=== PATIENT | female | born 1960 | race Caucasian/White ===

== ENCOUNTER 2022-05-06 14:39 | Inpatient (IN) | payer OTHER ==
[~2022-05-06] VITALS: Ht 167.6 cm; Wt 84.4 kg
[2022-05-06 14:40] VITALS: BP_SYST 155
[2022-05-06] MEDS ORDERED: DULO60CA42 PO (14:53)
[2022-05-06] MEDS ORDERED: APIX2.5T PO (14:53)
[2022-05-06] MEDS ORDERED: AMLO5TAB4 PO (14:53)
[2022-05-06] MEDS ORDERED: PRO40 IVP (14:53)
[2022-05-06 15:42] LABS: BASOPHILS # (AUTO) 0.1 K/uL (0.0-0.2); BASOPHILS % (AUTO) 0.7 % (0.0-2.0); EOSINOPHILS # (AUTO) 0.1 K/uL (0.0-0.4); EOSINOPHILS % (AUTO) 1.6 % (0.0-4.0); HEMOGLOBIN 9.8 g/dL (12.0-16.0); LYMPHOCYTES # (AUTO) 0.9 K/uL (1.0-5.5); MEAN CORPUSCULAR HEMOGLOBIN 31 pg (27-31); MEAN CORPUSCULAR HGB CONC 34 % (32-36); MEAN CORPUSCULAR VOLUME 90 fL (79.0-98.0); MONOCYTES # (AUTO) 0.9 K/uL (0.0-1.0); MONOCYTES % (AUTO) 10.2 % (1.7-9.3); NEUTROPHILS # (AUTO) 7.2 K/uL (1.8-7.7); NEUTROPHILS % (AUTO) 77.5 % (40.0-70.0); PLATELET COUNT (AUTO) 240 K/uL (130-430); RED BLOOD CELL COUNT(AUTO) 3.21 MIL/uL (4.2-6.2); RED CELL DISTRIBUTION WIDTH 16.2 % (9.0-15.0); WHITE BLOOD COUNT (AUTO) 9.3 K/uL (4.8-10.8)
[2022-05-06 15:54] LABS: ANION GAP 9 (5-15); CALCIUM 7.7 mg/dL (8.4-11.0); CHLORIDE 103 mmol/L (98-107); CREATININE 1.38 mg/dL (0.55-1.30); GFR AFRICAN AMERICAN 50 mL/min (>90); GLUCOSE 115 mg/dL (70-99); UREA NITROGEN, BLOOD 16 mg/dL (8-21)
[2022-05-06] MEDS ORDERED: NACL 0.9% 1,000 ML IV ONE ×2 (16:00)
[2022-05-06 16:01] LABS: ALANINE AMINOTRANSFERASE 17 U/L (12-78); ALBUMIN 2.3 g/dL (3.4-4.8); ASPARTATE AMINOTRANSFERASE 42 U/L (10-37); TOTAL BILIRUBIN 0.4 mg/dL (0.0-1.0)
[2022-05-06] MEDS ORDERED: MORPHINE 2 MG/ML INJ. SYRINGE IVP PRN (16:30)
[2022-05-06] MEDS ORDERED: ONDA4VIA52 IV (16:41)
[2022-05-06] MEDS ORDERED: D5NS 1,000 ML IV ONE (16:45)
[2022-05-06] MEDS ORDERED: MORPHINE 4 MG INJ. 4 MG/ML VIAL IVP ONE (20:00)
[2022-05-06] MEDS: ONDANSETRON HCL 4 MG/2 ML VIAL IVP SCH (21:10)
[2022-05-06] MEDS: PANTOPRAZOLE SODIUM 40 MG/VIAL (PROTONIX) IVP SCH (21:19)
[2022-05-06 21:30] VITALS: BP_SYST 141
[2022-05-07] MEDS ORDERED: *TPN PER PHARMACY XX PRN (00:30)
[2022-05-07 00:32] VITALS: BP_SYST 149
[2022-05-07] MEDS ORDERED: PIPERACILLIN/TAZOBACTAM 3.375 GM/VIAL (ZOSYN) IV ONE (01:24)
[2022-05-07] MEDS: PIPERACILLIN/TAZO 3.375/DEX-IS 50 ML IV SCH ×4 (01:48→22:02)
[2022-05-07] MEDS: ONDANSETRON HCL 4 MG/2 ML VIAL IVP SCH ×3 (06:54→22:01)
[2022-05-07 07:32] LABS: BASOPHILS % (AUTO) 0.5 % (0.0-2.0); EOSINOPHILS # (AUTO) 0.1 K/uL (0.0-0.4); EOSINOPHILS % (AUTO) 2.2 % (0.0-4.0); HEMATOCRIT 26.9 % (36-48); HEMOGLOBIN 9.2 g/dL (12.0-16.0); LYMPHOCYTES # (AUTO) 0.6 K/uL (1.0-5.5); LYMPHOCYTES % (AUTO) 9.3 % (20.5-51.5); MEAN CORPUSCULAR HEMOGLOBIN 31 pg (27-31); MEAN CORPUSCULAR HGB CONC 34 % (32-36); MEAN CORPUSCULAR VOLUME 91 fL (79.0-98.0); MONOCYTES # (AUTO) 0.6 K/uL (0.0-1.0); MONOCYTES % (AUTO) 8.7 % (1.7-9.3); NEUTROPHILS # (AUTO) 5.5 K/uL (1.8-7.7); NEUTROPHILS % (AUTO) 79.3 % (40.0-70.0); PLATELET COUNT (AUTO) 211 K/uL (130-430); RED BLOOD CELL COUNT(AUTO) 2.97 MIL/uL (4.2-6.2); RED CELL DISTRIBUTION WIDTH 15.8 % (9.0-15.0); WHITE BLOOD COUNT (AUTO) 6.9 K/uL (4.8-10.8)
[2022-05-07 07:49] LABS: CALCIUM 7.1 mg/dL (8.4-11.0); CREATININE 1.22 mg/dL (0.55-1.30); PHOSPHORUS 3.6 mg/dL (2.7-4.5); TOTAL BILIRUBIN 0.4 mg/dL (0.0-1.0)
[2022-05-07 08:00] VITALS: BP_SYST 155
[2022-05-07] MEDS: PANTOPRAZOLE SODIUM 40 MG/VIAL (PROTONIX) IVP SCH ×2 (08:48→22:01)
[2022-05-07] MEDS ORDERED: GADOTERATE MEGLUMINE 7.5 MMOL/15 ML VIAL IV ONE (09:24)
[2022-05-07] MEDS ORDERED: LORazepam 2 MG/ML VIAL IVP PRN (09:45)
[2022-05-07] MEDS: ONDANSETRON HCL 4 MG/2 ML VIAL IVP PRN (10:40)
[2022-05-07 11:46] VITALS: BP_SYST 149
[2022-05-07] MEDS ORDERED: METOCLOPRAMIDE HCL 10 MG/2 ML VIAL IVP PRN (12:00)
[2022-05-07] MEDS ORDERED: KCL 20 mEq in 100 mL (PREMIX) 100 ML IV ONE (12:15)
[2022-05-07 15:28] VITALS: BP_SYST 142
[2022-05-07] MEDS ORDERED: MIDAZOLAM HCL 5 MG/5 ML VIAL ONE (15:32)
[2022-05-07] MEDS ORDERED: fentaNYL CITRATE/PF 100 MCG/2 ML AMP ONE (15:32)
[2022-05-07] MEDS: DEXAMETHASONE SOD PHOSPHATE 4 MG/ML VIAL IVP SCH (18:56)
[2022-05-07 21:00] VITALS: BP_SYST 137
[2022-05-07] MEDS ORDERED: TPN CENTRAL 0.0001 ML, SODIUM ACETATE 40 MEQ, POTASSIUM CHLORIDE 20 MEQ, K PHOS 9 MM, M... IV SCH ×9 (21:00)
[2022-05-07 23:05] VITALS: BP_SYST 137
[2022-05-08] VITALS: BP_SYST 137
[2022-05-08] MEDS: DEXAMETHASONE SOD PHOSPHATE 4 MG/ML VIAL IVP SCH ×4 (00:12→17:36)
[2022-05-08] MEDS: PIPERACILLIN/TAZO 3.375/DEX-IS 50 ML IV SCH ×3 (06:17→21:55)
[2022-05-08] MEDS: ONDANSETRON HCL 4 MG/2 ML VIAL IVP SCH ×3 (06:17→21:56)
[2022-05-08 08:00] VITALS: BP_SYST 127
[2022-05-08 08:16] LABS: BASOPHILS % (AUTO) 0.3 % (0.0-2.0); HEMATOCRIT 28.8 % (36-48); HEMOGLOBIN 9.5 g/dL (12.0-16.0); LYMPHOCYTES # (AUTO) 0.4 K/uL (1.0-5.5); LYMPHOCYTES % (AUTO) 5.5 % (20.5-51.5); MEAN CORPUSCULAR HEMOGLOBIN 30 pg (27-31); MEAN CORPUSCULAR HGB CONC 33 % (32-36); MEAN CORPUSCULAR VOLUME 92 fL (79.0-98.0); MONOCYTES # (AUTO) 0.1 K/uL (0.0-1.0); MONOCYTES % (AUTO) 1.9 % (1.7-9.3); NEUTROPHILS # (AUTO) 6.7 K/uL (1.8-7.7); NEUTROPHILS % (AUTO) 92.3 % (40.0-70.0); PLATELET COUNT (AUTO) 231 K/uL (130-430); RED BLOOD CELL COUNT(AUTO) 3.12 MIL/uL (4.2-6.2); RED CELL DISTRIBUTION WIDTH 15.5 % (9.0-15.0); WHITE BLOOD COUNT (AUTO) 7.3 K/uL (4.8-10.8)
[2022-05-08 08:31] LABS: CREATININE 1.33 mg/dL (0.55-1.30); PHOSPHORUS 3.1 mg/dL (2.7-4.5); TOTAL BILIRUBIN 0.3 mg/dL (0.0-1.0)
[2022-05-08] MEDS: PANTOPRAZOLE SODIUM 40 MG/VIAL (PROTONIX) IVP SCH ×2 (08:53→21:56)
[2022-05-08 09:02] LABS: CALCIUM 6.7 mg/dL (8.4-11.0)
[2022-05-08] MEDS ORDERED: CALCIUM GLUCONATE 1 GM/10 ML VIAL IVP ONE (10:00)
[2022-05-08] MEDS ORDERED: CALCIUM GLUCONATE 2 GM in NS 100 ML IV ONE (11:15)
[2022-05-08 11:34] VITALS: BP_SYST 131
[2022-05-08] MEDS: ONDANSETRON HCL 4 MG/2 ML VIAL IVP PRN (12:07)
[2022-05-08 15:46] VITALS: BP_SYST 137
[2022-05-08] MEDS ORDERED: HONEY WOUND DRESSING 1 EACH TP PRN (18:45)
[2022-05-08 20:00] VITALS: BP_SYST 132
[2022-05-08] MEDS: ACETAMINOPHEN 325 MG TABLET PO PRN (20:44)
[2022-05-08] MEDS ORDERED: TPN CENTRAL 0.0001 ML, SODIUM CHLORIDE 40 MEQ, POTASSIUM CHLORIDE 20 MEQ, K PHOS 9 MM, ... IV SCH ×9 (21:00)
[2022-05-08] MEDS: FAT EMULSIONS 250 ML IV SCH (21:09)
[2022-05-09] MEDS: DEXAMETHASONE SOD PHOSPHATE 4 MG/ML VIAL IVP SCH ×4 (00:08→17:09)
[2022-05-09 00:49] VITALS: BP_SYST 142
[2022-05-09] MEDS: PIPERACILLIN/TAZO 3.375/DEX-IS 50 ML IV SCH ×3 (05:41→21:59)
[2022-05-09] MEDS: ONDANSETRON HCL 4 MG/2 ML VIAL IVP SCH ×3 (05:57→21:59)
[2022-05-09 07:06] LABS: BILIRUBIN,URINE NEGATIVE (NEGATIVE); CLARITY/URINE CLEAR (CLEAR); COLOR,URINE YELLOW (YELLOW); GLUCOSE,URINE NEGATIVE (NEGATIVE); KETONES,URINE NEGATIVE (NEGATIVE); LEUKOCYTE ESTERASE ,URINE NEGATIVE (NEGATIVE); NITRITE, URINE NEGATIVE (NEGATIVE); PROTEIN URINE NEGATIVE (NEGATIVE); UROBILINOGEN,URINE 0.2 (0.2-1.0)
[2022-05-09 07:11] LABS: BLOOD, URINE TRACE (NEGATIVE)
[2022-05-09 07:21] LABS: WBC,URINE 0-3 /HPF (0-3)
[2022-05-09 07:22] LABS: BACTERIA,URINE FEW /HPF (None Seen); MUCUS,URINE None Seen /LPF (None Seen)
[2022-05-09 07:57] VITALS: BP_SYST 128
[2022-05-09 08:02] LABS: BASOPHILS % (AUTO) 0.2 % (0.0-2.0); HEMATOCRIT 26.8 % (36-48); HEMOGLOBIN 8.8 g/dL (12.0-16.0); LYMPHOCYTES # (AUTO) 0.4 K/uL (1.0-5.5); LYMPHOCYTES % (AUTO) 3.4 % (20.5-51.5); MEAN CORPUSCULAR HEMOGLOBIN 30 pg (27-31); MEAN CORPUSCULAR HGB CONC 33 % (32-36); MEAN CORPUSCULAR VOLUME 93 fL (79.0-98.0); MONOCYTES # (AUTO) 0.3 K/uL (0.0-1.0); NEUTROPHILS # (AUTO) 10.6 K/uL (1.8-7.7); NEUTROPHILS % (AUTO) 93.4 % (40.0-70.0); PLATELET COUNT (AUTO) 227 K/uL (130-430); RED CELL DISTRIBUTION WIDTH 16.2 % (9.0-15.0); WHITE BLOOD COUNT (AUTO) 11.3 K/uL (4.8-10.8)
[2022-05-09 08:14] LABS: CREATININE 1.16 mg/dL (0.55-1.30); PHOSPHORUS 2.9 mg/dL (2.7-4.5); TOTAL BILIRUBIN 0.2 mg/dL (0.0-1.0)
[2022-05-09 08:15] LABS: PROTHROMBIN TIME 10.8 SECS (9.5-12.5)
[2022-05-09] MEDS: PANTOPRAZOLE SODIUM 40 MG/VIAL (PROTONIX) IVP SCH ×2 (08:15→21:58)
[2022-05-09 08:16] LABS: CALCIUM 6.4 mg/dL (8.4-11.0)
[2022-05-09] MEDS: ONDANSETRON HCL 4 MG/2 ML VIAL IVP PRN ×2 (08:19→17:09)
[2022-05-09] MEDS ORDERED: ALBUTEROL SULFATE 0.083% 2.5 MG/3 ML VIAL.NEB INH PRN (09:15)
[2022-05-09 09:36] VITALS: BP_SYST 128
[2022-05-09 12:40] VITALS: BP_SYST 132
[2022-05-09] MEDS: ACETAMINOPHEN 325 MG TABLET PO PRN (15:19)
[2022-05-09 16:05] VITALS: BP_SYST 129
[2022-05-09] MEDS ORDERED: CALCIUM GLUCONATE 2 GM in NS 100 ML IV ONE (17:45)
[2022-05-09 20:00] VITALS: BP_SYST 126
[2022-05-09] MEDS ORDERED: TPN CENTRAL 0.0001 ML, SODIUM CHLORIDE 40 MEQ, POTASSIUM CHLORIDE 40 MEQ, K PHOS 12 MM,... IV SCH ×9 (21:00)
[2022-05-09] MEDS: FAT EMULSIONS 250 ML IV SCH (22:11)
[2022-05-10 00:15] VITALS: BP_SYST 139
[2022-05-10] MEDS: DEXAMETHASONE SOD PHOSPHATE 4 MG/ML VIAL IVP SCH ×4 (00:59→17:40)
[2022-05-10] MEDS: ONDANSETRON HCL 4 MG/2 ML VIAL IVP SCH ×3 (06:09→21:21)
[2022-05-10] MEDS: PIPERACILLIN/TAZO 3.375/DEX-IS 50 ML IV SCH ×3 (06:10→21:20)
[2022-05-10 06:36] LABS: BASOPHILS % (AUTO) 0.2 % (0.0-2.0); EOSINOPHILS % (AUTO) 0.1 % (0.0-4.0); HEMATOCRIT 27.3 % (36-48); HEMOGLOBIN 9.2 g/dL (12.0-16.0); LYMPHOCYTES # (AUTO) 0.6 K/uL (1.0-5.5); LYMPHOCYTES % (AUTO) 5.1 % (20.5-51.5); MEAN CORPUSCULAR HEMOGLOBIN 30 pg (27-31); MEAN CORPUSCULAR HGB CONC 34 % (32-36); MEAN CORPUSCULAR VOLUME 90 fL (79.0-98.0); MONOCYTES # (AUTO) 0.6 K/uL (0.0-1.0); MONOCYTES % (AUTO) 4.9 % (1.7-9.3); NEUTROPHILS # (AUTO) 10.3 K/uL (1.8-7.7); NEUTROPHILS % (AUTO) 89.7 % (40.0-70.0); PLATELET COUNT (AUTO) 229 K/uL (130-430); RED BLOOD CELL COUNT(AUTO) 3.05 MIL/uL (4.2-6.2); RED CELL DISTRIBUTION WIDTH 15.9 % (9.0-15.0); WHITE BLOOD COUNT (AUTO) 11.5 K/uL (4.8-10.8)
[2022-05-10 07:48] VITALS: BP_SYST 128
[2022-05-10] MEDS: ONDANSETRON HCL 4 MG/2 ML VIAL IVP PRN ×2 (08:26→17:40)
[2022-05-10] MEDS: PANTOPRAZOLE SODIUM 40 MG/VIAL (PROTONIX) IVP SCH ×2 (08:26→21:20)
[2022-05-10 10:51] LABS: ALBUMIN 1.9 g/dL (3.4-4.8); CREATININE 1.04 mg/dL (0.55-1.30); TOTAL BILIRUBIN 0.2 mg/dL (0.0-1.0)
[2022-05-10 11:44] LABS: CALCIUM 6.8 mg/dL (8.4-11.0)
[2022-05-10 12:00] VITALS: BP_SYST 132
[2022-05-10] MEDS ORDERED: COMMUNICATION ORDER XX ONE (12:15)
[2022-05-10 16:00] VITALS: BP_SYST 130
[2022-05-10 20:36] VITALS: BP_SYST 133
[2022-05-10] MEDS ORDERED: [UNRECOGNIZED DRUG - OTHER] IV SCH ×10 (21:00)
[2022-05-10] MEDS ORDERED: SODIUM CHLORIDE IV SCH ×10 (21:00)
[2022-05-10] MEDS ORDERED: TPN CENTRAL IV SCH ×10 (21:00)
[2022-05-10] MEDS ORDERED: POTASSIUM CHLORIDE IV SCH ×10 (21:00)
[2022-05-11 00:20] VITALS: BP_SYST 141
[2022-05-11] MEDS: DEXAMETHASONE SOD PHOSPHATE 4 MG/ML VIAL IVP SCH ×3 (00:23→13:12)
[2022-05-11] MEDS: ONDANSETRON HCL 4 MG/2 ML VIAL IVP SCH (06:02)
[2022-05-11] MEDS: PIPERACILLIN/TAZO 3.375/DEX-IS 50 ML IV SCH ×2 (06:03→14:18)
[2022-05-11] MEDS ORDERED: MAGNESIUM SULFATE 50 ML IV ONE (07:30)
[2022-05-11 08:33] LABS: BASOPHILS % (AUTO) 0.1 % (0.0-2.0); HEMATOCRIT 28.8 % (36-48); HEMOGLOBIN 9.5 g/dL (12.0-16.0); LYMPHOCYTES # (AUTO) 0.5 K/uL (1.0-5.5); LYMPHOCYTES % (AUTO) 4.9 % (20.5-51.5); MEAN CORPUSCULAR HEMOGLOBIN 30 pg (27-31); MEAN CORPUSCULAR HGB CONC 33 % (32-36); MEAN CORPUSCULAR VOLUME 91 fL (79.0-98.0); MONOCYTES # (AUTO) 0.3 K/uL (0.0-1.0); MONOCYTES % (AUTO) 2.6 % (1.7-9.3); NEUTROPHILS # (AUTO) 10.3 K/uL (1.8-7.7); NEUTROPHILS % (AUTO) 92.4 % (40.0-70.0); PLATELET COUNT (AUTO) 255 K/uL (130-430); RED BLOOD CELL COUNT(AUTO) 3.15 MIL/uL (4.2-6.2); RED CELL DISTRIBUTION WIDTH 16.5 % (9.0-15.0); WHITE BLOOD COUNT (AUTO) 11.2 K/uL (4.8-10.8)
[2022-05-11 09:11] LABS: CALCIUM 7.2 mg/dL (8.4-11.0); CREATININE 1.2 mg/dL (0.55-1.30); PHOSPHORUS 3.4 mg/dL (2.7-4.5); TOTAL BILIRUBIN 0.2 mg/dL (0.0-1.0)
[2022-05-11] MEDS: PANTOPRAZOLE SODIUM 40 MG/VIAL (PROTONIX) IVP SCH (10:20)
[2022-05-11 10:25] VITALS: BP_SYST 134
[2022-05-11] MEDS: ONDANSETRON HCL 4 MG/2 ML VIAL IVP PRN (13:09)
[2022-05-11 15:34] VITALS: BP_SYST 140
[2022-05-11 15:44] VITALS: BP_SYST 140
[2022-05-11 15:50] VITALS: BP_SYST 140
== END 2022-05-11 16:30 | disposition home health service (06) | DRG 598 ==
LOC: SED 14:39 → STU 16:24
PROVIDERS: ADMIT Internal Medicine; ATTEND Internal Medicine
PROC: 0DB78ZX Excision of Stomach, Pylorus, Via Natural or Artificial Opening Endoscopic, Diagnostic (ICD-10-PCS; principal; 2022-05-07 15:45)
PROC: 0D758ZZ Dilation of Esophagus, Via Natural or Artificial Opening Endoscopic (ICD-10-PCS; 2022-05-07 15:45)
PROC: 0W993ZZ Drainage of Right Pleural Cavity, Percutaneous Approach (ICD-10-PCS; 2022-05-09)
DX: C50.911 Malignant neoplasm of unspecified site of right female breast (principal); C79.2 Secondary malignant neoplasm of skin; C79.31 Secondary malignant neoplasm of brain; G91.1 Obstructive hydrocephalus; J90 Pleural effusion, not elsewhere classified; E87.6 Hypokalemia; E83.51 Hypocalcemia; D64.9 Anemia, unspecified; C50.912 Malignant neoplasm of unspecified site of left female breast; I48.91 Unspecified atrial fibrillation; R74.01 Elevation of levels of liver transaminase levels; Z20.822 Contact with and (suspected) exposure to COVID-19; I10 Essential (primary) hypertension; K31.7 Polyp of stomach and duodenum; Z85.3 Personal history of malignant neoplasm of breast; Z88.8 Allergy status to other drugs, medicaments and biological substances; Z79.899 Other long term (current) drug therapy; Z79.01 Long term (current) use of anticoagulants; Z17.1 Estrogen receptor negative status [ER-]; Z17.0 Estrogen receptor positive status [ER+]; Z15.01 Genetic susceptibility to malignant neoplasm of breast
CPT/HCPCS: 32555; 36415; 43239; 70450-TC; 70553; 71045; 71260-TC; 76376; 80053; 81000; 82140; 83735; 83880; 84100; 84443; 84478; 84484; 85025; 85610-TC; 85730-TC; 86300; 87040; 87070-TC; 88305; 88312; 88313; 93005; 94760; 97110-GP; 97112-GP; 97116-GP; 97530-GP; 97535-GO; 99285; A9575; C1769; C9113; G0378; J0610; J1100; J2250; J2270; J2405; J2543; J3010; J3475; J3480; J7131; Q9967